=== PATIENT | male | born 1955 | race Caucasian/White ===

== ENCOUNTER 2016-11-07 22:37 | Emergency (ER) | payer OTHER ==
[2016-11-07 22:47] VITALS: BP 169/93; PULSE 86; TEMP 97.9; BMI 29.0
--- NOTE | 2016-11-07 23:52 | PDOC ---
History of Present Illness - General History Source: Patient Exam Limitations: No Limitations - History of Present Illness Initial Comments: 11/08/16 00:00 The patient is a 61 year old male with significant past medical history of a-fib , hypertension, COPD, irvin's esophagus, and BPH who presents to the ED with 3 days of right-sided tooth ache. The patient denies fever, chills, cough, SOB, chest pain, and palpitations. The patient denies abdominal pain, nausea, vomiting, and diarrhea. Allergies: aspirin, ibuprofen Social History: No alcohol, tobacco, or drug use reported. Past Surgical History: appendectomy, cholecystectomy PCP: Dr. Chetan Guillaume <Jennifer Culp - Last Filed: 11/08/16 00:00> - General History Source: Patient <Pavan Tellez - Last Filed: 11/08/16 00:01> - General Chief Complaint: Toothache Stated Complaint: TOOTHACHE Time Seen by Provider: 11/07/16 23:52 Past History <Jennifer Culp - Last Filed: 11/08/16 00:00> - Past Medical History Anemia: No Asthma: No Cancer: No Cardiac Disorders: Yes (a-fib) CVA: No COPD: Yes CHF: No Dementia: No Diabetes: No GI Disorders: Yes (GERD,Barretts Esophagus) Disorders: Yes (ENLARGED PROSTATE) HTN: Yes Hypercholesterolemia: No Liver Disease: No Seizures: No Thyroid Disease: No - Surgical History Abdominal Surgery: No Appendectomy: Yes Cardiac Surgery: No Cholecystectomy: Yes Lung Surgery: No Neurologic Surgery: No (BACK SURGERY) Orthopedic Surgery: Yes (BACK SURGERY) - Psycho/Social/Smoking Cessation Hx Suicidal Ideation: No Smoking Status: No Smoking History: Never smoked Have you smoked in the past 12 months: No Number of Cigarettes Smoked Daily: 0 Hx Alcohol Use: No Drug/Substance Use Hx: No Substance Use Type: None Hx Substance Use Treatment: No <Pavan Tellez - Last Filed: 11/08/16 00:01> - Past Medical History Allergies/Adverse Reactions: Allergies Allergy/AdvReac Type Severity Reaction Status Date / Time aspirin Allergy Verified 11/07/16 22:44 ibuprofen Allergy Hives Verified 11/07/16 22:44 Home Medications: Ambulatory Orders Lisinopril [Prinivil] 5 mg PO DAILY 03/10/13 Esomeprazole Magnesium [Nexium] 40 mg PO ACBK tablet 07/20/14 Montelukast Sodium [Singulair] 10 mg PO HS tablet 07/20/14 Alfuzosin HCl [Uroxatral] 10 mg PO DAILY 08/30/15 Amoxicillin - [Amoxicillin 875mg Tablet -] 875 mg PO BID #20 tablet 11/07/16 Review of Systems - Review of Systems Able to Perform ROS?: Yes Comments:: 11/08/16 00:00 CONSTITUTIONAL: Absent: fever, no chills, no fatigue EYES: Absent: visual changes ENT: +tooth ache Absent: ear pain, no sore throat CARDIOVASCULAR: Absent: chest pain, no palpitations RESPIRATORY: Absent: cough, no SOB GI: Absent: abdominal pain, no nausea, no vomiting, no constipation, no diarrhea GENITOURINARY: Absent: dysuria, no frequency, no hematuria MUSKULOSKELETAL: Absent: back pain, no arthralgia, no myalgia SKIN: Absent: rash NEURO: Absent: headache <Jennifer Culp - Last Filed: 11/08/16 00:00> *Physical Exam - Vital Signs Last Vital Signs Temp Pulse Resp BP Pulse Ox 97.9 F 86 18 169/93 98 11/07/16 22:44 11/07/16 22:44 11/07/16 22:44 11/07/16 22:44 11/07/16 22:44 - Physical Exam Comments: 11/08/16 00:00 GENERAL: Well-appearing, well-nourished. No apparent distress. HEENT: Normocephalic, atraumatic. PERRL, EOM intact. Decaying tooth number 13 with erythema to the gingiva. CARDIOVASCULAR: Normal S1, S2. Regular rate and rhythm. PULMONARY: Clear to auscultation bilaterally. ABDOMEN: Soft, non-distended, non-tender. EXTREMITIES: Normal ROM in all four extremities. No gross deformities. SKIN: Warm, dry. No rash NEUROLOGICAL: No focal neurological deficits. <Jennifer Culp - Last Filed: 11/08/16 00:00> - Vital Signs Last Vital Signs Temp Pulse Resp BP Pulse Ox 97.9 F 86 18 169/93 98 11/07/16 22:44 11/07/16 22:44 11/07/16 22:44 11/07/16 22:44 11/07/16 22:44 <Pavan Tellez - Last Filed: 11/08/16 00:01> Medical Decision Making - Medical Decision Making 11/07/16 23:53 Dr. Tellez: The scribe's documentation has been prepared under my direction and personally reviewed by me in its entirery. I confirm that the note above accurately reflects all work, treatment, procedures, and medical decision making performed by me. <Pavan Tellez - Last Filed: 11/08/16 00:01> *DC/Admit/Observation/Transfer - Attestations Scribe Attestion: 11/08/16 00:01 Documentation prepared by Jennifer Culp, acting as clinical specialist medical device for Pavan Tellez MD <Jennifer Culp - Last Filed: 11/08/16 00:00> - Discharge Dispostion Admit: No <Pavan Tellez - Last Filed: 11/08/16 00:01> Diagnosis at time of Disposition: Toothache - Discharge Dispostion Disposition: HOME Condition at time of disposition: Stable - Prescriptions Prescriptions: Amoxicillin - [Amoxicillin 875mg Tablet -] 875 mg PO BID #20 tablet - Referrals Referrals: Chetan Guillaume MD [Primary Care Provider] - - Patient Instructions Printed Discharge Instructions: DI for Dental Pain
== END 2016-11-08 00:03 | disposition home or self-care (01) ==
LOC: JER 22:37
DX: K08.89 Other specified disorders of teeth and supporting structures (principal); I48.91 Unspecified atrial fibrillation; I10 Essential (primary) hypertension; J44.9 Chronic obstructive pulmonary disease, unspecified; K22.70 Barrett's esophagus without dysplasia; N40.0 Benign prostatic hyperplasia without lower urinary tract symptoms
CPT/HCPCS: 99281-25

== ENCOUNTER 2017-12-07 19:00 | Emergency (ER) | payer OTHER ==
[2017-12-07 19:44] VITALS: BP 140/72; PULSE 92; TEMP 98.1; BMI 29.0
[2017-12-07] MEDS ORDERED: ACETAMINOPHEN 500 MG TABLET (FP) PO ONE (19:57)
--- NOTE | 2017-12-07 19:57 | PDOC ---
History of Present Illness - General History Source: Patient Exam Limitations: No Limitations - History of Present Illness Initial Comments: 12/07/17 20:01 The patient is a 63 year old male with past medical history of hypertension and heart murmur who arrives to the ED s/p mechanical fall earlier today. The patient states he fell after coming down his stairs and subsequently hit his left buttocks. Since then he reports gradual onset of pain to his left buttock that is worse with movement, sitting, or pressing on the area.. He reports the pain is relieved while laying on his side. He denies any associated numbness or tingling. The patient reports taking over the counter pain relievers to help is pain today. The patient denies hitting his head or losing consciousness, but reports that upon getting up from the fall he became dizzy. He reports the dizziness went away after drinking some orange juice and laying down. He denies any headache or change in vision. The patient denies any recent illness, fevers , or chills. <Adriana Ku - Last Filed: 12/07/17 20:08> <Sudheer Duncan - Last Filed: 12/08/17 06:58> - General Chief Complaint: Injury Stated Complaint: FELL, LEFT HIP PAIN Time Seen by Provider: 12/07/17 19:48 Past History <Adriana Ku - Last Filed: 12/07/17 20:08> - Past Medical History Anemia: No Asthma: No Cancer: No Cardiac Disorders: Yes (a-fib) CVA: No COPD: Yes CHF: No Dementia: No Diabetes: No GI Disorders: Yes (GERD,Barretts Esophagus) Disorders: Yes (ENLARGED PROSTATE) HTN: Yes Hypercholesterolemia: No Liver Disease: No Seizures: No Thyroid Disease: No - Surgical History Abdominal Surgery: No Appendectomy: Yes Cardiac Surgery: No Cholecystectomy: Yes Lung Surgery: No Neurologic Surgery: No (BACK SURGERY) Orthopedic Surgery: Yes (BACK SURGERY) - Suicide/Smoking/Psychosocial Hx Smoking Status: No Smoking History: Never smoked Have you smoked in the past 12 months: No Number of Cigarettes Smoked Daily: 0 Hx Alcohol Use: No Drug/Substance Use Hx: No Substance Use Type: None Hx Substance Use Treatment: No <Sudheer Duncan - Last Filed: 12/08/17 06:58> - Past Medical History Allergies/Adverse Reactions: Allergies Allergy/AdvReac Type Severity Reaction Status Date / Time aspirin AdvReac Verified 12/07/17 19:30 Home Medications: Ambulatory Orders Esomeprazole Magnesium [Nexium] 40 mg PO ACBK tablet 07/20/14 Lisinopril 10 mg PO DAILY 12/07/17 Metoprolol Tartrate [Lopressor -] 25 mg PO DAILY 12/07/17 Tamsulosin HCl [Flomax] 0.4 mg PO BID 12/07/17 Review of Systems - Review of Systems Able to Perform ROS?: Yes Comments:: 12/07/17 20:01 GENERAL/CONSTITUTIONAL: No fever or chills. No weakness. HEAD, EYES, EARS, NOSE AND THROAT: No change in vision. No ear pain or discharge. No sore throat. GASTROINTESTINAL: No nausea, vomiting, diarrhea or constipation. GENITOURINARY: No dysuria, frequency, or change in urination. CARDIOVASCULAR: No chest pain or shortness of breath. RESPIRATORY: No cough, wheezing, or hemoptysis. MUSCULOSKELETAL: Present: left buttock pain SKIN: No rash NEUROLOGIC: Present: dizziness No headache, loss of consciousness, or change in strength/sensation. ENDOCRINE: No increased thirst. No abnormal weight change. HEMATOLOGIC/LYMPHATIC: No anemia, easy bleeding, or history of blood clots. ALLERGIC/IMMUNOLOGIC: No hives or skin allergy. All Other Systems: Reviewed and Negative <Adriana Ku - Last Filed: 12/07/17 20:08> *Physical Exam - Vital Signs Last Vital Signs Temp Pulse Resp BP Pulse Ox 98.1 F 92 H 16 140/72 98 12/07/17 19:25 12/07/17 19:25 12/07/17 19:25 12/07/17 19:25 12/07/17 19:25 - Physical Exam Comments: 12/07/17 20:05 GENERAL: Awake, alert, and fully oriented, in no acute distress HEAD: No signs of trauma ABDOMEN: Soft, nontender, nondistended, no bladder distention EXTREMITIES: Tenderness on palpation of buttocks muscles. Normal range of motion , no edema. No clubbing or cyanosis. No cords, erythema, or tenderness BACK: No midline spinal tenderness in cervical/thoracic/lumbar region NEUROLOGICAL: Normal speech, cranial nerves intact, negative pronator drift, 5/ 5 strength in all 4 extremities, normal sensation to light touch in all 4 extremities, normal cerebellar exam, normal gait, normal reflexes and tone SKIN: Warm, Dry, normal turgor, no rashes or lesions noted. <Adriana Ku - Last Filed: 12/07/17 20:08> - Vital Signs Last Vital Signs Temp Pulse Resp BP Pulse Ox 98.1 F 92 H 16 140/72 98 12/07/17 19:25 12/07/17 19:25 12/07/17 19:25 12/07/17 19:25 12/07/17 19:25 <Sudheer Duncan - Last Filed: 12/08/17 06:58> Medical Decision Making - Medical Decision Making 12/08/17 06:57 plain films -, as read by me, referred to radiology for definitive iram a/p hip contusion analgesia <Sudheer Duncan - Last Filed: 12/08/17 06:58> *DC/Admit/Observation/Transfer - Attestations Scribe Attestion: 12/07/17 20:06 Documentation prepared by Adriana Ku, acting as medical oncology physician for Sudheer Duncan MD. <Adriana Ku - Last Filed: 12/07/17 20:08> <Sudheer Duncan - Last Filed: 12/08/17 06:58> Diagnosis at time of Disposition: Contusion Qualifiers: Encounter type: initial encounter Contusion area: pelvic area Qualified Code(s) : S30.0XXA - Contusion of lower back and pelvis, initial encounter - Discharge Dispostion Disposition: HOME Condition at time of disposition: Good - Referrals Referrals: Chetan Guillaume MD [Primary Care Provider] - Call tomorrow - Patient Instructions Printed Discharge Instructions: DI for Contusion - Post Discharge Activity
[2017-12-07] MEDS ORDERED: ACETAMINOPHEN 500 MG TABLET (FP) ONE (19:59)
== END 2017-12-07 20:56 | disposition home or self-care (01) ==
LOC: FER 19:00
DX: S30.0XXA Contusion of lower back and pelvis, initial encounter (principal); W18.39XA Other fall on same level, initial encounter; Y93.89 Activity, other specified; Y92.9 Unspecified place or not applicable; I10 Essential (primary) hypertension; R01.1 Cardiac murmur, unspecified; I48.91 Unspecified atrial fibrillation; J44.9 Chronic obstructive pulmonary disease, unspecified
CPT/HCPCS: 73523-TC-FY; 99282-25

== ENCOUNTER 2018-03-12 11:21 | Emergency (ER) | payer OTHER ==
[2018-03-12 11:31] VITALS: TEMP 98.2; BMI 29.2
[2018-03-12] MEDS ORDERED: LISINOPRIL 20 MG TABLET (FP) PO ONE (13:57)
--- NOTE | 2018-03-12 13:57 | PDOC ---
History of Present Illness - General Chief Complaint: Blood Pressure Problem Stated Complaint: BLOOD PRESSURE CHECK Time Seen by Provider: 03/12/18 11:30 - History of Present Illness Initial Comments: 03/12/18 14:48 Chief complaint: Elevated blood pressure History of present illness: Blood pressure was checked at the pharmacy, for the pharmacist instructed the patient to come to the emergency room, since his pressure was high. He has since contacted his door manager, who recommended he increase his lisinopril to 20 mg a day and follow-up with him. Review of systems: Patient is asymptomatic. No chest pain, shortness of breath, abdominal pain, nausea, vomiting, diarrhea, diaphoresis, lightheadedness or dizziness, visual or focal neurologic symptoms, unsteadiness of gait Past medical history: Elevated blood pressure, no history of UT, CVA, PVD Social/family history reviewed and noncontributory Physical exam: Alert and oriented well-developed well-nourished no acute distress cheerful and cooperative Afebrile, vital signs stable except for moderately elevated pressure, initially 180/110, falling with rest to 150/90. PERRLA, fundi benign, ENT clear Neck supple without bruit mass or nodes Chest clear with full breath sounds bilaterally CV S1 and S2 normal without murmur rub or gallop pulses full and symmetric no JVD or edema Abdomen benign Neurological C2 to 12 intact. No focal sensory or motor deficits. Strength full and symmetric. Gait stable and unimpaired Impression: Elevated blood pressure, asymptomatic, no sign of acute heart disease or other contributing factors Plan: Patient has been in contact with his door manager. He will follow up as directed. Increase medication as directed by the door manager. Return to ER if further symptoms develop. Fully ambulatory and in no pain or other distress upon discharge Past History - Past Medical History Allergies/Adverse Reactions: Allergies Allergy/AdvReac Type Severity Reaction Status Date / Time ibuprofen [From Motrin] Allergy Intermediate Hives Verified 03/12/18 12:35 aspirin AdvReac Verified 03/12/18 12:35 Home Medications: Ambulatory Orders Lisinopril 10 mg PO DAILY 12/07/17 Metoprolol Tartrate [Lopressor -] 25 mg PO DAILY 12/07/17 Anemia: No Asthma: No Cancer: No Cardiac Disorders: Yes (a-fib) CVA: No COPD: Yes CHF: No Dementia: No Diabetes: No GI Disorders: Yes (GERD,Barretts Esophagus) Disorders: Yes (ENLARGED PROSTATE) HTN: Yes Hypercholesterolemia: No Liver Disease: No Seizures: No Thyroid Disease: No - Surgical History Abdominal Surgery: No Appendectomy: Yes Cardiac Surgery: No Cholecystectomy: Yes Lung Surgery: No Neurologic Surgery: No (BACK SURGERY) Orthopedic Surgery: Yes (BACK SURGERY) - Suicide/Smoking/Psychosocial Hx Smoking Status: No Smoking History: Never smoked Have you smoked in the past 12 months: No Number of Cigarettes Smoked Daily: 0 Information on smoking cessation initiated: No Hx Alcohol Use: No Drug/Substance Use Hx: No Substance Use Type: None Hx Substance Use Treatment: No *Physical Exam - Vital Signs Last Vital Signs Temp Pulse Resp BP Pulse Ox 98.2 F 76 20 172/92 100 03/12/18 11:22 03/12/18 11:22 03/12/18 11:22 03/12/18 12:45 03/12/18 11:22 *DC/Admit/Observation/Transfer Diagnosis at time of Disposition: Elevated blood pressure reading - Discharge Dispostion Disposition: HOME Condition at time of disposition: Improved Decision to Admit order: No - Referrals - Patient Instructions Printed Discharge Instructions: DI for High Blood Pressure Additional Instructions: Increase your lisinopril as directed by Dr. Ervin. Return to ER if there are any future symptoms, especially chest pain, shortness of breath, nausea, perspiring , lightheadedness or dizziness. Follow up as usual with your door manager, be sure to discuss the difference in blood pressure in your two arms. - Post Discharge Activity
[2018-03-12] MEDS ORDERED: LISINOPRIL 5 MG TABLET (FP) ONE (14:02)
[2018-03-12 14:05] VITALS: BP 155/94; PULSE 68
== END 2018-03-12 15:00 | disposition home or self-care (01) ==
LOC: FER 11:21
DX: R03.0 Elevated blood-pressure reading, without diagnosis of hypertension (principal); I48.91 Unspecified atrial fibrillation; K22.70 Barrett's esophagus without dysplasia; J44.9 Chronic obstructive pulmonary disease, unspecified
CPT/HCPCS: 99281-25

== ENCOUNTER 2020-05-31 04:48 | Day surgery (SDC) | payer OTHER ==
[2020-05-26 15:17] VITALS: BMI 29.2
[2020-05-31 10:23] VITALS: TEMP 98
[2020-05-31 12:08] VITALS: BP 138/78; PULSE 61
--- NOTE | 2020-06-01 15:15 | PATH ---
Surgical Pathology Report Patient Name: ZACHARIAH MAY [facility]. Rec. #: [id number] /Age/Gender: 1955 (Age: 64) / M Account: [id number] Location: U-ENDOSCOPY Taken: 05/31/2020 Received: 05/31/2020 Reported: 06/01/2020 Physicians: Ramírez Wei D.O. Specimen(s) Received A: PYLORUS B: BODY OF STOMACH C: CECAL POLYP #1 D: CECAL POLYP #2 E: RECTAL POLYP F: DISTAL RECTAL POLYP Clinical History Rule out H. Pylori, colon polyp Postoperative diagnosis: Gastritis, colon polyps Final Diagnosis A. PYLORUS, BIOPSY: GASTRIC MUCOSA WITH MODERATE CHRONIC GASTRITIS AND INTESTINAL METAPLASIA. NO DYSPLASIA IDENTIFIED. IMMUNOHISTOCHEMICAL STAIN FOR H. PYLORI IS NEGATIVE. B. STOMACH, BODY, BIOPSY: GASTRIC BODY MUCOSA WITH MILD CHRONIC GASTRITIS. IMMUNOHISTOCHEMICAL STAIN FOR H. PYLORI IS NEGATIVE. C. CECAL POLYP #1, POLYPECTOMY: TUBULAR ADENOMA. D. CECAL POLYP #2, POLYPECTOMY: SESSILE SERRATED POLYP. E. RECTAL POLYP, POLYPECTOMY: HYPERPLASTIC POLYP. F. DISTAL RECTAL POLYP, POLYPECTOMY: HYPERPLASTIC POLYP. Positive and negative controls (internal if applicable) show appropriate results. Electronically Signed Shahida Cardona M.D. Gross Description A. Received in formalin, labeled "pylorus" are 3 sheridan, irregular portions of soft tissue averaging 0.3 cm. in greatest dimension. The specimens are submitted in toto in one cassette. B. Received in formalin, labeled "body of stomach" are 3 sheridan, irregular portions of soft tissue averaging 0.3 cm. in greatest dimension. The specimens are submitted in toto in one cassette. C. Received in formalin, labeled "cecal polyp #1" are 3 sheridan, irregular portions of soft tissue ranging from 0.1-0.3 cm. in greatest dimension. The specimens are submitted in toto in one cassette. D. Received in formalin, labeled "cecal polyp #2" are 2 sheridan, irregular portions of soft tissue measuring 0.1 and 0.7 cm. in greatest dimension. The specimens are submitted in toto in one cassette. E. Received in formalin, labeled "rectal polyp" are 2 sheridan, irregular portions of soft tissue measuring 0.1 and 0.2 cm. in greatest dimension. The specimens are submitted in toto in one cassette. F. Received in formalin, labeled "distal rectal polyp" is a sheridan, irregular portion of soft tissue measuring 0.3 cm. in greatest dimension. The specimen is submitted in toto in one cassette. 05[facility]
== END 2020-05-31 11:45 | disposition home or self-care (01) ==
LOC: JASU-ENDO 04:48
PROVIDERS: ATTEND Internal Medicine Gastroenterology
PROC: 0DBP8ZX Excision of Rectum, Via Natural or Artificial Opening Endoscopic, Diagnostic (ICD-10-PCS; 2020-05-31)
PROC: 0DB68ZX Excision of Stomach, Via Natural or Artificial Opening Endoscopic, Diagnostic (ICD-10-PCS; 2020-05-31)
PROC: 0DBH8ZX Excision of Cecum, Via Natural or Artificial Opening Endoscopic, Diagnostic (ICD-10-PCS; principal; 2020-05-31 09:00)
DX: Z86.010 Personal history of colon polyps (principal); D12.0 Benign neoplasm of cecum; K62.1 Rectal polyp; K64.8 Other hemorrhoids; K29.50 Unspecified chronic gastritis without bleeding; K31.9 Disease of stomach and duodenum, unspecified; I10 Essential (primary) hypertension; N40.0 Benign prostatic hyperplasia without lower urinary tract symptoms; K21.9 Gastro-esophageal reflux disease without esophagitis; I48.91 Unspecified atrial fibrillation
CPT/HCPCS: 88305-TC; 88342-TC

== ENCOUNTER 2020-12-07 18:09 | Emergency (ER) | payer OTHER | END 2020-12-07 18:55 | disposition home or self-care (01) | LOC: JVIRT 18:09 | DX: Z11.52 Encounter for screening for COVID-19 (principal) | CPT/HCPCS: C9803; G2251-GT; Q3014-GT; U0003 ==

== ENCOUNTER 2021-05-25 04:17 | Day surgery (SDC) | payer OTHER ==
[2021-05-25] MEDS ORDERED: KETAMINE HCL 200 MG/20 ML VIAL ONE (06:55)
[2021-05-25 07:44] VITALS: BMI 27.8
[2021-05-25 09:29] VITALS: TEMP 98
[2021-05-25 13:27] VITALS: BP 132/69; PULSE 63
== END 2021-05-25 10:25 | disposition home or self-care (01) ==
LOC: JASU-ENDO 04:17
PROVIDERS: ATTEND Internal Medicine Gastroenterology
PROC: 0DBL8ZX Excision of Transverse Colon, Via Natural or Artificial Opening Endoscopic, Diagnostic (ICD-10-PCS; 2021-05-25)
PROC: 0DBH8ZX Excision of Cecum, Via Natural or Artificial Opening Endoscopic, Diagnostic (ICD-10-PCS; principal; 2021-05-25 08:15)
DX: Z12.11 Encounter for screening for malignant neoplasm of colon (principal); D12.0 Benign neoplasm of cecum; D12.3 Benign neoplasm of transverse colon; Z86.010 Personal history of colon polyps; K57.30 Diverticulosis of large intestine without perforation or abscess without bleeding; K64.8 Other hemorrhoids; I10 Essential (primary) hypertension; I48.91 Unspecified atrial fibrillation; Z88.6 Allergy status to analgesic agent

== ENCOUNTER 2021-10-06 10:12 | Emergency (ER) | payer OTHER ==
[2021-10-06 10:24] VITALS: BP 154/87; PULSE 78; TEMP 99.5; BMI 32.3
[2021-10-07 13:07] LABS: SARS-CoV-2 NAA Detected (Not Detected)
== END 2021-10-06 11:05 | disposition home or self-care (01) ==
LOC: FER 10:12
DX: J02.9 Acute pharyngitis, unspecified (principal); R05.9 Cough, unspecified; R68.83 Chills (without fever)
CPT/HCPCS: 87804; 99283-25; C9803-CS; U0003; U0005